=== PATIENT | male | born 1950 | race Caucasian/White ===

== ENCOUNTER 2022-01-26 08:42 | Emergency (ER) | payer OTHER ==
[~2022-01-26] VITALS: Ht 165.1 cm; Wt 71.2 kg
[~2022-01-26 08:42] MED LIST: FURO20 PO; POTA10T PO
== END 2022-01-26 09:23 | disposition home or self-care (01) ==
LOC: ER 08:42
DX: R06.02 Shortness of breath (principal); C71.9 Malignant neoplasm of brain, unspecified; Z79.899 Other long term (current) drug therapy
CPT/HCPCS: 99282

== ENCOUNTER 2022-03-04 06:55 | Day surgery (SDC) | payer OTHER ==
[~2022-03-04] VITALS: Ht 165.1 cm; Wt 74.8 kg
[2022-03-04] MEDS ORDERED: PANT40 PO (08:03)
[2022-03-04] MEDS ORDERED: DEXA2 PO (08:03)
--- NOTE | 2022-03-04 11:33 | NUR ---
Patient up to Ambulate independently. Gait steady. Discharge instructions reviewed with patient. Patient verbalizes understanding. Copy given to patient to take home. Patient States Post-Procedure ride home has been arranged WITH RIDE SERVICE. Discharged via wheelchair to private car for ride home.
== END 2022-03-04 11:45 | disposition home or self-care (01) ==
LOC: ORSCMMR 06:55 → ORD 08:45 → ORSCMMR 08:45
PROVIDERS: Surgery
PROC: 05HM33Z Insertion of Infusion Device into Right Internal Jugular Vein, Percutaneous Approach (ICD-10-PCS; principal; 2022-03-04 08:45)
PROC: B543ZZA Ultrasonography of Right Jugular Veins, Guidance (ICD-10-PCS; principal; 2022-03-04 08:45)
DX: C71.1 Malignant neoplasm of frontal lobe (principal); D50.9 Iron deficiency anemia, unspecified; J43.9 Emphysema, unspecified; K21.9 Gastro-esophageal reflux disease without esophagitis; Z79.899 Other long term (current) drug therapy; F41.8 Other specified anxiety disorders; F17.210 Nicotine dependence, cigarettes, uncomplicated
CPT/HCPCS: 77001; 93005; 93010; C1788; J0690; J1100; J1642; J2001; J2250; J2370; J2405; J2704; J3010; J7120

== ENCOUNTER 2022-05-19 14:26 | Inpatient (IN) | payer OTHER ==
[~2022-05-19] VITALS: Ht 165.1 cm; Wt 71.7 kg
[~2022-05-19 14:26] MED LIST changes: +DEXA2 PO; +PANT40 PO
[2022-05-19 16:23] LABS: BASOPHILS ABSOLUTE AUTO 0.03 K/mm3 (0.00-0.23); BASOPHILS PERCENT AUTO 0 % (0-2); EOSINOPHILS PERCENT AUTO 0 % (0-6); Hematocrit 41.9 % (37.0-53.0); Hemoglobin 13.4 g/dL (13.5-17.5); IMMATURE GRAN ABSOLUTE AUTO 0.13 K/mm3 (0.00-0.10); IMMATURE GRAN PERCENT AUTO 1 % (0-1); LYMPHOCYTES ABSOLUTE AUTO 1.33 K/mm3 (0.84-5.20); LYMPHOCYTES PERCENT AUTO 8 % (21-46); MONOCYTES ABSOLUTE AUTO 1.44 K/mm3 (0.16-1.47); MONOCYTES PERCENT AUTO 8 % (4-13); Mean Corpuscular HGB 24.8 pg (26.0-34.0); Mean Corpuscular Volume 78 fL (80-100); Mean Platelet Volume 9.4 fL (9.1-12.4); NEUTROPHILS ABSOLUTE AUTO 14.42 K/mm3 (1.96-9.15); NEUTROPHILS PERCENT AUTO 83 % (41-73); Platelet Count 234 K/mm3 (150-400); RDW Coefficient Variation 19.1 % (11.7-14.2); RDW Standard Deviation 53.1 fL (35.1-46.3); White Blood Cell Count 17.35 K/mm3 (4.00-11.30)
[2022-05-19 16:28] LABS: Source, Urine Clean Catch
[2022-05-19 16:32] LABS: Appearance, Urine Clear (Clear); Bilirubin, Urine Neg (Neg); Blood, Urine 5+ (Neg); Color, Urine Yellow (P-Yellow); Glucose Qualitative, Urine Neg (Neg); Ketones, Urine Neg (Neg); Leukocyte Esterase, Urine 1+ (Neg); Nitrite, Urine Neg (Neg); Protein, Urine 3+ (Neg); Urobilinogen, Urine NORM (Normal)
[2022-05-19 16:39] LABS: Magnesium, Blood 2.4 mg/dL (1.6-2.4)
[2022-05-19 16:58] LABS: Creatine Kinase MB 18.1 ng/mL (0.0-3.6)
[2022-05-19 17:15] LABS: Alanine Aminotransfer (ALT/SGP 137 U/L (12-78); Albumin, Blood 3.5 g/dL (3.4-5.0); Albumin/Globulin Ratio 0.8 (0.8-1.8); Alk Phos 80 U/L (50-136); Anion Gap 4 mmol/L (6-16); Aspartate Aminotrans (AST/SGOT 575 U/L (12-37); Bilirubin, Total 0.7 mg/dL (0.1-1.0); Blood Urea Nitrogen 24 mg/dL (8-24); CO2, Blood 28 mmol/L (21-32); Calcium, Blood 9.4 mg/dL (8.5-10.1); Chloride, Blood 104 mmol/L (98-108); Creatinine, Blood 1.26 mg/dL (0.60-1.20); Globulin, Blood 4.3 g/dL (2.2-4.0); Glomerular Filtration Rate 61 (60-); Glucose, Blood 108 mg/dL (70-99); Potassium, Blood 4.1 mmol/L (3.5-5.5); Sodium, Blood 136 mmol/L (136-145); Total Protein, Blood 7.8 g/dL (6.4-8.2)
[2022-05-19 17:59] LABS: Squamous Epithelial Cells Few /hpf (Few)
[2022-05-19 18:00] LABS: Bacteria Few /hpf
[2022-05-19 18:01] LABS: Hyaline Casts 0-2 /lpf (0-2)
[2022-05-19 18:09] LABS: CPK Creatine Kinase >20000 U/L (39-308); Creatine Kinase MB Index Unable to Calculate (0.0-4.0)
[2022-05-20 04:59] LABS: BASOPHILS ABSOLUTE AUTO 0.02 K/mm3 (0.00-0.23); BASOPHILS PERCENT AUTO 0 % (0-2); EOSINOPHILS ABSOLUTE AUTO 0.04 K/mm3 (0.00-0.68); EOSINOPHILS PERCENT AUTO 0 % (0-6); Hematocrit 34.3 % (37.0-53.0); Hemoglobin 11.1 g/dL (13.5-17.5); IMMATURE GRAN ABSOLUTE AUTO 0.04 K/mm3 (0.00-0.10); IMMATURE GRAN PERCENT AUTO 0 % (0-1); LYMPHOCYTES ABSOLUTE AUTO 1.29 K/mm3 (0.84-5.20); LYMPHOCYTES PERCENT AUTO 11 % (21-46); MONOCYTES ABSOLUTE AUTO 1.13 K/mm3 (0.16-1.47); MONOCYTES PERCENT AUTO 10 % (4-13); Mean Corpuscular HGB 24.9 pg (26.0-34.0); Mean Corpuscular HGB Conc 32.4 g/dL (31.5-36.5); Mean Corpuscular Volume 77 fL (80-100); Mean Platelet Volume 9.6 fL (9.1-12.4); NEUTROPHILS ABSOLUTE AUTO 8.82 K/mm3 (1.96-9.15); NEUTROPHILS PERCENT AUTO 78 % (41-73); Platelet Count 212 K/mm3 (150-400); RDW Coefficient Variation 18.6 % (11.7-14.2); RDW Standard Deviation 52.9 fL (35.1-46.3); Red Blood Cell Count 4.45 M/mm3 (4.30-5.90); White Blood Cell Count 11.34 K/mm3 (4.00-11.30)
[2022-05-20 05:25] LABS: Albumin, Blood 2.7 g/dL (3.4-5.0); Albumin/Globulin Ratio 0.7 (0.8-1.8); Bilirubin, Total 0.7 mg/dL (0.1-1.0); Calcium, Blood 8.3 mg/dL (8.5-10.1); Creatinine, Blood 1.05 mg/dL (0.60-1.20); Globulin, Blood 3.9 g/dL (2.2-4.0); Potassium, Blood 3.8 mmol/L (3.5-5.5); Total Protein, Blood 6.6 g/dL (6.4-8.2)
--- NOTE | 2022-05-20 05:39 | NUR ---
PT ADMITTED FROM ED AT 2230- PT FEBRILE AT ADMISSION- IV FLUIDS AND TYLENOL BROUGHT FEVER DOWN- PT USES URINAL W/O PROBLEMS- RIGHT LEG INJURY FROM FALL- CONCERNED OF COMPARTMENT SYNDROME - MONITORED T/O NIGHT - NO S/S INCREASED EDEMA OR PAIN- IV INFUSING W/O PROBLEMS, BED LOW POSITION, CALL LIGHT IN PLACE
--- NOTE | 2022-05-20 08:04 | NUR ---
PATIENT C/O PAIN ON THE TOP OF HIS RIGHT FOOT, BILATERAL GROIN AND THE BACK OF HIS HEAD WHICH IS RED, WARM AND 2 WOUNDS ARE PRESENT. MEDICATED PER EMAR
[2022-05-20] MEDS ORDERED: TEMOZOLOMIDE250 MG PO (15:51)
--- NOTE | 2022-05-20 18:53 | NUR ---
PATIENT IS ALERT AND ORIENTED. TEARFUL AT TIMES. CARE MANAGEMENT IS WORKING WITH THE PATIENT. C/O BILATERAL GROIN PAIN FOR PT THIS MORNING. DR. GONZALEZ NOTIFIED AND A BILATERAL HIP XR WAS ORDERED AND COMPLETED. PAIN MANAGED WITH IV FENTANYL AND TYLENOL. WILL CONTINUE TO MONITOR
[2022-05-21 06:08] LABS: BASOPHILS ABSOLUTE AUTO 0.01 K/mm3 (0.00-0.23); BASOPHILS PERCENT AUTO 0 % (0-2); EOSINOPHILS PERCENT AUTO 0 % (0-6); Hematocrit 37.9 % (37.0-53.0); Hemoglobin 12.3 g/dL (13.5-17.5); IMMATURE GRAN ABSOLUTE AUTO 0.03 K/mm3 (0.00-0.10); IMMATURE GRAN PERCENT AUTO 0 % (0-1); LYMPHOCYTES ABSOLUTE AUTO 0.86 K/mm3 (0.84-5.20); LYMPHOCYTES PERCENT AUTO 11 % (21-46); MONOCYTES ABSOLUTE AUTO 0.41 K/mm3 (0.16-1.47); MONOCYTES PERCENT AUTO 5 % (4-13); Mean Corpuscular HGB 24.8 pg (26.0-34.0); Mean Corpuscular HGB Conc 32.5 g/dL (31.5-36.5); Mean Corpuscular Volume 77 fL (80-100); Mean Platelet Volume 9.5 fL (9.1-12.4); NEUTROPHILS ABSOLUTE AUTO 6.49 K/mm3 (1.96-9.15); NEUTROPHILS PERCENT AUTO 83 % (41-73); Platelet Count 265 K/mm3 (150-400); RDW Coefficient Variation 18.2 % (11.7-14.2); RDW Standard Deviation 50.9 fL (35.1-46.3); Red Blood Cell Count 4.95 M/mm3 (4.30-5.90)
--- NOTE | 2022-05-21 06:11 | NUR ---
PT SLEPT T/O NIGHT- PT WOKE UP UPSET DURING BLOOD DRAW- PT YELLING AT THIS RN AND PHELB AND WANTED ANSWERS NOW RE: WHY PHY THER AND OCCU THER THINK HE SHOULD GO TO REHAB- EXPLAINED TO PT THAT REHAB WOULD HELP HIM GET STRONGER - PT CONTINUED TO BE UPSET AND WAS DEMANDING THAT THIS RN CALL IN ANYONE WHO HAS BEEN INVOLVED WITH THE DECESION FOR HIM TO GO TO REHAB ENOURAGED PT TO CALM DOWN AND NOTIFIED THAT I WILL PASS ON IN REPORT TO HAVE NURSE FOLLOW UP WITH PT, OT, PHYS, AND MOLD DESIGN ENGINEER TO SPEAK WITH HIM- PT UPSET BUT AGREED
[2022-05-21 06:58] LABS: Albumin, Blood 2.7 g/dL (3.4-5.0); Albumin/Globulin Ratio 0.6 (0.8-1.8); Bilirubin, Total 0.6 mg/dL (0.1-1.0); Bun/Creatinine Ratio 19.9 (12.0-20.0); Calcium, Blood 8.7 mg/dL (8.5-10.1); Creatine Kinase MB 2.8 ng/mL (0.0-3.6); Creatinine, Blood 0.81 mg/dL (0.60-1.20); Globulin, Blood 4.4 g/dL (2.2-4.0); Potassium, Blood 4.1 mmol/L (3.5-5.5); Total Protein, Blood 7.1 g/dL (6.4-8.2)
--- NOTE | 2022-05-21 14:53 | NUR ---
PT STATES HAS HAD DIARRHEA SINCE SHORTLY AFTER ADMIT. WOULD LIKE IMMODIUM OR SOMETHING. EXPLAINED IS ON ANTIBIOTICS, AND NOT ON PROBIOTICS. CALLED DR. CARIE DR TO MAKE ORDERS. ALSO, PT STATES ONLY 1 OR 2 DIARRHEA DAILY. BUT IS NOT NORMAL.
--- NOTE | 2022-05-21 18:10 | NUR ---
PT DOING PRETTY WELL TODAY. ALTHOUGH HARD OF HEARING, COMMUNICATES WELL. LEG SOME IMPROVED TODAY. PT HAS NO C/O PAIN. DID AMBULATE TO BATHROOM SBA. TOOK SHOWER. PT ADMITS TO DIARRHEA SINCE SHORTLY AFTER ADMIT. DISCUSSED WITH REQUESTED ANTIDIARRHEAL AND PROBIOTICS. HE STATES WILL DECIDE. PT STATES ONLY 1 OR 2 MOVEMENTS DAILY, JUST VERY UNCOMFORTABLE. PT STATES FEELS BETTER OVERALL. PT/OT DID WORK WITH HIM TODAY. HE AMBULATED DOWN HALLS AND BACK. PT STATES INTENDS TO GO TO [place] UPON DISCHARGE TO SISTER'S. NO OTHER CONCERNS NOTED TODAY. BED IN LOW POSITION, CALL LITE IN REACH, CALLS APROP
--- NOTE | 2022-05-22 04:12 | NUR ---
SUMMARY: PATIENT DID WELL OVER NIGHT. ONLY COMPLAINED OF A MILD HEADACHE, PO TYLENOL GIVEN. PATIENT DENIES ANY DIARRHEA OVERNIGHT. VSS. PATIENT SLEPT COMFORTABLY IN BED. APPROPRIATE USE OF CALL LIGHT. IV FLUIDS RUNNING. PATIENT VOIDING IN URINAL. NO ACUTE EVENTS. SKI GUIDE IN PLACE.
[2022-05-22 07:54] LABS: Creatine Kinase MB 1.4 ng/mL (0.0-3.6)
[2022-05-22 07:56] LABS: Albumin, Blood 2.2 g/dL (3.4-5.0); Albumin/Globulin Ratio 0.6 (0.8-1.8); Bilirubin, Total 0.4 mg/dL (0.1-1.0); Bun/Creatinine Ratio 25.6 (12.0-20.0); Creatine Kinase MB Index 0.1 (0.0-4.0); Creatinine, Blood 0.7 mg/dL (0.60-1.20); Globulin, Blood 3.7 g/dL (2.2-4.0); Potassium, Blood 3.4 mmol/L (3.5-5.5); Total Protein, Blood 5.9 g/dL (6.4-8.2)
[2022-05-22] MEDS ORDERED: ACET325 PO (15:27)
[2022-05-22] MEDS ORDERED: CEPH500 PO (15:28)
--- NOTE | 2022-05-22 16:54 | NUR ---
DISCHARGE REVIEWD WITH PT . HE VERBALIZED UNDERSTANDING MEDS AND INST. RX FOR FRONT WHEEL WALKER HANDED TO PT. RIDE ARRANGED WITH MTM. PEND 1700. IV PULLED INTACT. NO TELE. PT DRESSED AND PREPARED TO GO.
--- NOTE | 2022-05-22 17:37 | NUR ---
EMAIL OPERATIONS MANAGER STATES RIDE THROUGH [employer]. PENDING CALL TO GO HOME.
--- NOTE | 2022-05-22 17:56 | NUR ---
DISCHARGE TO [facility] AT 1755 WHEELED TO DOOR BY AIDE.
== END 2022-05-22 18:00 | disposition home health service (06) | DRG 558 ==
LOC: ER 14:26 → MEDS 14:27
PROVIDERS: Internal Medicine; Physician Assistant; ADMIT Specialist
DX: M62.82 Rhabdomyolysis (principal); L03.115 Cellulitis of right lower limb; M54.2 Cervicalgia; Z51.5 Encounter for palliative care; R55 Syncope and collapse; K21.9 Gastro-esophageal reflux disease without esophagitis; H02.7 Other and unspecified degenerative disorders of eyelid and periocular area; N18.9 Chronic kidney disease, unspecified; F41.9 Anxiety disorder, unspecified; F32.A Depression, unspecified; H54.7 Unspecified visual loss; W18.30XA Fall on same level, unspecified, initial encounter; Z85.841 Personal history of malignant neoplasm of brain; Z87.891 Personal history of nicotine dependence; Z98.890 Other specified postprocedural states
CPT/HCPCS: 36415; 70450; 71045; 72125; 73522; 73610; 80053; 81001; 82550; 82553; 83605; 83735; 83880; 85025; 87040; 87086; 87147; 93005; 93010; 93971; 96365; 97110; 97116; 97162; 97530; 99285-25; A9270; J0690; J1650; J2543; J3010; J7030; J7120